=== PATIENT | female | born 1970 | race Caucasian/White ===

== ENCOUNTER 2017-05-02 21:51 | Emergency (ER) | payer OTHER ==
[~2017-05-02] VITALS: Ht 175.3 cm; Wt 113.9 kg
[~2017-05-02 21:51] MED LIST: IBUPROFEN800 MG PO; NEXIUM20 MG PO; PERCOCET 5/3251 EACH PO; SYNTHROID0.175 MG PO; TORADOL10 M1 PO
--- NOTE | 2017-05-02 22:59 | Emergency Room Report ---
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 N Clinical Suspician of Infection? N Mental Status: 1 - Regular (Normal Baseline) Sepsis Risk:Low Sepsis Risk Have you (or family members/close friends) recently traveled outside the [place]? N If Yes, where/when: Have you had exposure to infectious disease within the past month? N TB? Other? Specify: Source patient, RN notes reviewed, family, RN/MD Exam Limitations no limitations Comment This is a 46-year-old lady arriving to the emergency room with abdominal pain, nausea and vomiting, onset 2 weeks ago, gradually getting worse last 2-3 days. Patient underwent bariatric surgery by sleep procedure, in [place], by Dr. Je Fermin, 2 weeks ago. Procedure went uneventfully, however , few days after the operation patient started complaining with epigastric pain. She saw Dr. Fermin in the office on Wednesday and she is scheduled for a return follow-up visit this coming Wednesday. As patient's symptoms precipitated she presented to the closest emergency room. She has been having several episodes of nausea and vomiting on a daily basis, again, worse over the past few days. Patient has a chest pain or shortness of breath otherwise. ALLERGIES Coded Allergies: No Known Allergies (07/16/16) Home Medications Active Scripts KETOROLAC TROMETHAMINE (Ketorolac Tromethamine) 10 MG PO Q6HP PRN MILD PAIN, FEVER OR HEADACHE #20 TAB Ref 1 Prov: 01/29/15 Oxycodone 5MG/[id number] (Oxycodone-Acetaminophen 5-325) 1-2 TAB PO Q4HP PRN MODERATE TO SEVERE PAIN #30 TAB Prov: 01/29/15 Reported Medications Levothyroxine Sodium (Synthroid 0.175MG) 0.175 MG PO DAILY #1 Esomeprazole Magnesium (Nexium) 20 MG PO DAILY History Medical History General CAD? No Angina: No [place]: No Hypertension? No Hyperlipidemia? No CHF? No DVT? No PE? No COPD? No Asthma? No Anemia? No GERD? No Gastric ulcers? No GI Bleed? No Hernia? No Thyroid Problems? Yes Hypothyroidism? No CVA? No Seizures? No Diabetes? No Renal Insuffiency? No End Stage Renal Disease? No UTI? No Stones? No BPH? No GB Disease: No Nephritic Syndrome? No Asplenia? No Hepatitis? No Sickle Cell Disease? No Arthritis? Yes Migraines? No Cataracts? No Glaucoma? No MRSA? No HIV? No TB? No Anxiety? No Depression? No Cancer? Yes Site: BASAL CELL More? 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 Family History Family Hx Diabetes Yes CAD Yes Hypertension Yes Hyperlipidemia Yes Cancer Yes TB No Social History Smoking Hx Smoker: Never Smoker Tobacco: No Alcohol Alcohol: No Review of Systems All Other Systems Reviewed and Negative Gastrointestinal see HPI, abdominal pain, nausea, vomiting Physical Exam Vital Signs Vital Signs Date Time Temp Pulse Resp B/P Pulse O2 O2 Flow FiO2 Ox Delivery Rate 05/03 0331 99 20 148/93 95 05/03 0231 81 20 148/94 95 05/03 0202 20 05/03 0128 80 20 157/95 100 05/03 0015 84 20 151/90 98 05/02 2358 18 05/02 2320 86 18 130/73 98 05/02 2201 98.2 87 18 146/96 100 General Appearance normal appearance, WD/WN, moderate distress Respiratory Status Yes: trachea midline, chest symmetrical, non tender chest. No: respiratory distress. Lung Sounds bilateral: normal breath sounds, lungs clear. 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 No Comment 01:50am - called [facility] in [place], [place] to inquire about transferring the patient to Dr Je Fermin, her bariatric patient. We were told that there is no other physician covering for his group elana. 02:30am - afetr numerous phone calls, we were given Dr. Fermin's office number: , which eventually led to his physician exchange number: . Case d/w physician exchange, Doreen, who paged Dr Fermin. 02:40am - Call returned by Dr Je Fermin, advised of the patient's presentation findings, agreeable with management so far, including Lovenox subcutaneous. Dr. Fermin also recommended the patient be transferred to [facility], care of on-call general surgery, specifically requesting an intervention to be available if medically warranted, in case her condition deteriorates. Dr. Je Fermin does not believe that the portal vein thrombosis is a complication OF the sleeve procedure. He is agreeable with management so far, including anticoagulation with Lovenox. 02:50am - case d/w dr. Robles at (general surgery), advised of the patient's condition and findings, agreeable with transfer to ER. 02:55am- patient very resistant to the idea of being transferred to [facility], due to recent personal family member loss. Patient advised of risks and also complications of her current condition, including sudden , loss of current lifestyle, loss of limb or organ function, etc. Results/Orders Laboratory Tests 05/02/17 2320: Sodium 139, Potassium 3.1 L, Chloride 104, Carbon Dioxide 27, BUN 9, Creatinine 0.8, Estimated Creat Clear 158, Estimated GFR (MDRD) 77, Glucose 101, Calcium 8.4 L, Total Bilirubin 0.4, AST 55 H, ALT 55, Alkaline Phosphatase 174 H, Total Protein 7.6, Albumin 3.2 L, Globulin 4.4 H, Albumin/Globulin Ratio 0.7 L, Amylase 26, Lipase 169, WBC 8.7, RBC 4.85, Hgb 14.0, Hct 41.7, MCV 85.8, RDW 13.2, Plt Count 289, MPV 9.2, Gran % 73.3, Gran # 6.4, Lymphocytes % 18.6, Monocytes % 6.2, Eosinophils % 1.4, Basophils % 0.5, Lymphocytes # 1.6, Monocytes # 0.5, Eosinophils # 0.1, Basophils # 0.0, PUBS MCHC 33.6, MCH 28.8 05/02/17 6929: Opiates Screen Cancelled, Urine Methadone Screen Cancelled, Barbiturates Cancelled, Phencyclidine Screen Cancelled, Amphetamines Screen Cancelled, Benzodiazepines Screen Cancelled, Cocaine Screen Cancelled, Marijuana (THC) Screen Cancelled, Urine Color Cancelled, Urine Appearance Cancelled, Urine pH Cancelled, Ur Specific [place] Cancelled Current Medication Orders Sig/Rajinder Start time Last Medication Dose Route Stop Time Status Admin Morphine Sulfate 10 MG ONCE ONE 05/03 0400 AC IV 05/03 040 Morphine Sulfate 0 .STK-MED ONE 05/03 0350 DC .ROUTE Enoxaparin Sodium 110 MG ONCE ONE 05/03 024 DC SC 05/03 0246 Sodium Chloride 1,000 ML .Q1H1M 05/03 024 DC IV 05/03 0345 Sodium Chloride 10 ML PRN PRN 05/03 0245 AC IV 05/04 0244 Morphine Sulfate 8 MG ONCE ONE 05/03 0200 DC 05/03 IV 05/03 0201 0202 Ondansetron HCl 4 MG ONCE ONE 05/03 0200 DC 05/03 IV 05/03 020 0159 Ondansetron HCl 0 .STK-MED ONE 05/03 0155 DC .ROUTE Potassium Chloride 0 .STK-MED ONE 05/03 0155 DC PO Morphine Sulfate 0 .STK-MED ONE 05/03 0154 DC .ROUTE Iopamidol 75 ML ONCE ONE 05/03 0145 UNV 05/03 IV 05/03 0146 0132 Sodium Chloride 10 ML PRN PRN 05/03 0145 UNV 05/03 IV 05/03 0301 0132 Potassium Chloride 40 MEQ ONCE ONE 05/03 0030 DC 05/03 PO 05/03 0031 0159 Ondansetron HCl 0 .STK-MED ONE 05/02 2332 DC .ROUTE Sodium Chloride 1,000 ML .STK-MED ONE 05/02 2332 DC IV Morphine Sulfate 0 .STK-MED ONE 09/24 2331 DC .ROUTE Morphine Sulfate 6 MG ONCE ONE 05/02 2315 DC 05/02 IV 05/02 231 2358 Ondansetron HCl 4 MG ONCE ONE 05/02 2315 DC 05/02 IV 05/02 2316 2358 Sodium Chloride 1,000 ML .Q1H1M 05/02 2300 DC 05/02 IV 05/03 0000 2358 Sodium Chloride 10 ML PRN PRN 05/02 2300 AC IV 05/03 225 Sodium Chloride 10 ML PRN PRN 05/02 2300 AC IV 05/03 2259 Orders Procedure Date/time Status DIET-NOTHING BY MOUTH 05/[address] ABD & PELVIS W/ CONTRAST 05/[address] ABD/PELVIS REQ 05/03 2305 Active IV SALINE LOCK 05/02 2259 Active LIPASE 05/02 2259 Complete CBC WITH AUTO DIFF 05/02 2259 Complete CHEM 12 PROFILE 05/02 2259 Complete AMYLASE 05/02 2259 Complete XRAY/CT/US XRAY/CT/US CT abdomen, pelvis CT interpretation by discussed w/radiologist CT Results abnormal Comment Refer to virtual radiology report, consistent with portal vein thrombosis Departure Departure Time of Disposition 0149 Disposition DC/XFER from ER to [facility] Clinical Impression Primary Impression: Portal vein thrombosis Condition STABLE ED Critical Care Critical Care Yes Time spent 30-74 min Vital system(s) involved: Circulatory Failure I was present at bedside for Coordinating pt's care, During my initial exam, Reviewing lab results, Reviewing old records, Discussing pt condition, For re- examinations, Examining radiographs If Critical Care minutes are documented, the time involved in the performance of seperately reportable procedures was not counted toward critical care time documented. I directly delivered medical care to this critically ill and/or injured patient. Timely evaluation and treatment was necessary to address the significant organ system(s) dysfunction present in this patient. at [id number]
--- NOTE | 2017-05-02 22:59 | Emergency Room Report ---
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 N Clinical Suspician of Infection? N Mental Status: 1 - Regular (Normal Baseline) Sepsis Risk:Low Sepsis Risk Have you (or family members/close friends) recently traveled outside the [place]? N If Yes, where/when: Have you had exposure to infectious disease within the past month? N TB? Other? Specify: Source patient, RN notes reviewed, family, RN/MD Exam Limitations no limitations Comment This is a 46-year-old lady arriving to the emergency room with abdominal pain, nausea and vomiting, onset 2 weeks ago, gradually getting worse last 2-3 days. Patient underwent bariatric surgery by sleep procedure, in [place], by Dr. Je Fermin, 2 weeks ago. Procedure went uneventfully, however , few days after the operation patient started complaining with epigastric pain. She saw Dr. Fermin in the office on Wednesday and she is scheduled for a return follow-up visit this coming Wednesday. As patient's symptoms precipitated she presented to the closest emergency room. She has been having several episodes of nausea and vomiting on a daily basis, again, worse over the past few days. Patient has a chest pain or shortness of breath otherwise. ALLERGIES Coded Allergies: No Known Allergies (07/16/16) Home Medications Active Scripts KETOROLAC TROMETHAMINE (Ketorolac Tromethamine) 10 MG PO Q6HP PRN MILD PAIN, FEVER OR HEADACHE #20 TAB Ref 1 Prov: 01/29/15 Oxycodone 5MG/[id number] (Oxycodone-Acetaminophen 5-325) 1-2 TAB PO Q4HP PRN MODERATE TO SEVERE PAIN #30 TAB Prov: 01/29/15 Reported Medications Levothyroxine Sodium (Synthroid 0.175MG) 0.175 MG PO DAILY #1 Esomeprazole Magnesium (Nexium) 20 MG PO DAILY History Medical History General CAD? No Angina: No [place]: No Hypertension? No Hyperlipidemia? No CHF? No DVT? No PE? No COPD? No Asthma? No Anemia? No GERD? No Gastric ulcers? No GI Bleed? No Hernia? No Thyroid Problems? Yes Hypothyroidism? No CVA? No Seizures? No Diabetes? No Renal Insuffiency? No End Stage Renal Disease? No UTI? No Stones? No BPH? No GB Disease: No Nephritic Syndrome? No Asplenia? No Hepatitis? No Sickle Cell Disease? No Arthritis? Yes Migraines? No Cataracts? No Glaucoma? No MRSA? No HIV? No TB? No Anxiety? No Depression? No Cancer? Yes Site: BASAL CELL More? 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 Family History Family Hx Diabetes Yes CAD Yes Hypertension Yes Hyperlipidemia Yes Cancer Yes TB No Social History Smoking Hx Smoker: Never Smoker Tobacco: No Alcohol Alcohol: No Review of Systems All Other Systems Reviewed and Negative Gastrointestinal see HPI, abdominal pain, nausea, vomiting Physical Exam Vital Signs Vital Signs Date Time Temp Pulse Resp B/P Pulse O2 O2 Flow FiO2 Ox Delivery Rate 05/03 0331 99 20 148/93 95 05/03 0231 81 20 148/94 95 05/03 0202 20 05/03 0128 80 20 157/95 100 05/03 0015 84 20 151/90 98 05/02 2358 18 05/02 2320 86 18 130/73 98 05/02 2201 98.2 87 18 146/96 100 General Appearance normal appearance, WD/WN, moderate distress Respiratory Status Yes: trachea midline, chest symmetrical, non tender chest. No: respiratory distress. Lung Sounds bilateral: normal breath sounds, lungs clear. 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 No Comment 01:50am - called [facility] in [place], [place] to inquire about transferring the patient to Dr Je Fermin, her bariatric patient. We were told that there is no other physician covering for his group elana. 02:30am - afetr numerous phone calls, we were given Dr. Fermin's office number: ( [phone], which eventually led to his physician exchange number: [phone]. Case d/w physician exchange, Doreen, who paged Dr Fermin. 02:40am - Call returned by Dr Je Fermin, advised of the patient's presentation findings, agreeable with management so far, including Lovenox subcutaneous. Dr. Fermin also recommended the patient be transferred to [facility], care of on-call general surgery, specifically requesting an intervention to be available if medically warranted, in case her condition deteriorates. Dr. Je Fermin does not believe that the portal vein thrombosis is a complication OF the sleeve procedure. He is agreeable with management so far, including anticoagulation with Lovenox. 02:50am - case d/w dr. Robles at (general surgery), advised of the patient's condition and findings, agreeable with transfer to ER. 02:55am- patient very resistant to the idea of being transferred to [facility], due to recent personal family member loss. Patient advised of risks and also complications of her current condition, including sudden , loss of current lifestyle, loss of limb or organ function, etc. Results/Orders Laboratory Tests 05/02/17 2320: Sodium 139, Potassium 3.1 L, Chloride 104, Carbon Dioxide 27, BUN 9, Creatinine 0.8, Estimated Creat Clear 158, Estimated GFR (MDRD) 77, Glucose 101, Calcium 8.4 L, Total Bilirubin 0.4, AST 55 H, ALT 55, Alkaline Phosphatase 174 H, Total Protein 7.6, Albumin 3.2 L, Globulin 4.4 H, Albumin/Globulin Ratio 0.7 L, Amylase 26, Lipase 169, WBC 8.7, RBC 4.85, Hgb 14.0, Hct 41.7, MCV 85.8, RDW 13.2, Plt Count 289, MPV 9.2, Gran % 73.3, Gran # 6.4, Lymphocytes % 18.6, Monocytes % 6.2, Eosinophils % 1.4, Basophils % 0.5, Lymphocytes # 1.6, Monocytes # 0.5, Eosinophils # 0.1, Basophils # 0.0, PUBS MCHC 33.6, MCH 28.8 05/02/17 0509: Opiates Screen Cancelled, Urine Methadone Screen Cancelled, Barbiturates Cancelled, Phencyclidine Screen Cancelled, Amphetamines Screen Cancelled, Benzodiazepines Screen Cancelled, Cocaine Screen Cancelled, Marijuana (THC) Screen Cancelled, Urine Color Cancelled, Urine Appearance Cancelled, Urine pH Cancelled, Ur Specific [place] Cancelled Current Medication Orders Sig/Rajinder Start time Last Medication Dose Route Stop Time Status Admin Morphine Sulfate 10 MG ONCE ONE 05/03 0400 AC IV 05/03 040 Morphine Sulfate 0 .STK-MED ONE 05/03 0350 DC .ROUTE Enoxaparin Sodium 110 MG ONCE ONE 05/03 024 DC SC 05/03 0246 Sodium Chloride 1,000 ML .Q1H1M 05/03 024 DC IV 05/03 0345 Sodium Chloride 10 ML PRN PRN 05/03 0245 AC IV 05/04 0244 Morphine Sulfate 8 MG ONCE ONE 05/03 0200 DC 05/03 IV 05/03 0201 0202 Ondansetron HCl 4 MG ONCE ONE 05/03 0200 DC 05/03 IV 05/03 020 0159 Ondansetron HCl 0 .STK-MED ONE 05/03 0155 DC .ROUTE Potassium Chloride 0 .STK-MED ONE 05/03 0155 DC PO Morphine Sulfate 0 .STK-MED ONE 05/03 0154 DC .ROUTE Iopamidol 75 ML ONCE ONE 05/03 0145 UNV 05/03 IV 05/03 0146 0132 Sodium Chloride 10 ML PRN PRN 05/03 0145 UNV 05/03 IV 05/03 0301 0132 Potassium Chloride 40 MEQ ONCE ONE 05/03 0030 DC 05/03 PO 05/03 0031 0159 Ondansetron HCl 0 .STK-MED ONE 05/02 2332 DC .ROUTE Sodium Chloride 1,000 ML .STK-MED ONE 05/02 2332 DC IV Morphine Sulfate 0 .STK-MED ONE 09/24 2331 DC .ROUTE Morphine Sulfate 6 MG ONCE ONE 05/02 2315 DC 05/02 IV 05/02 231 2358 Ondansetron HCl 4 MG ONCE ONE 05/02 2315 DC 05/02 IV 05/02 2316 2358 Sodium Chloride 1,000 ML .Q1H1M 05/02 2300 DC 05/02 IV 05/03 0000 2358 Sodium Chloride 10 ML PRN PRN 05/02 2300 AC IV 05/03 225 Sodium Chloride 10 ML PRN PRN 05/02 2300 AC IV 05/03 2259 Orders Procedure Date/time Status DIET-NOTHING BY MOUTH 05/[address] ABD & PELVIS W/ CONTRAST 05/[address] ABD/PELVIS REQ 05/03 2305 Active IV SALINE LOCK 05/02 2259 Active LIPASE 05/02 2259 Complete CBC WITH AUTO DIFF 05/02 2259 Complete CHEM 12 PROFILE 05/02 2259 Complete AMYLASE 05/02 2259 Complete XRAY/CT/US XRAY/CT/US CT abdomen, pelvis CT interpretation by discussed w/radiologist CT Results abnormal Comment Refer to virtual radiology report, consistent with portal vein thrombosis Departure Departure Time of Disposition 0149 Disposition DC/XFER from ER to [facility] Clinical Impression Primary Impression: Portal vein thrombosis Condition STABLE ED Critical Care Critical Care Yes Time spent 30-74 min Vital system(s) involved: Circulatory Failure I was present at bedside for Coordinating pt's care, During my initial exam, Reviewing lab results, Reviewing old records, Discussing pt condition, For re- examinations, Examining radiographs If Critical Care minutes are documented, the time involved in the performance of seperately reportable procedures was not counted toward critical care time documented. I directly delivered medical care to this critically ill and/or injured patient. Timely evaluation and treatment was necessary to address the significant organ system(s) dysfunction present in this patient. at 1767
[2017-05-02 23:35] LABS: LYMPH # 1.6 K/mm3 (0.7-4.5); LYMPH % 18.6 % (10-50.0)
[2017-05-03 04:25] VITALS: BP 140/90
--- NOTE | 2017-05-04 07:48 | RADIOLOGY REPORT PS360 ---
CT ABD PELVIS W/ CONTRAST HISTORY: N/V. POST GASTRIC SLEEVE2 weeks ago now with pain nausea vomiting Patient Age: 46 years: Female Ordering Physician: George Canseco MD TECHNIQUE: Helical CT scanning with following 75 cc Isovue-370 IV contrast. No oral contrast COMPARISON : 2014 ultrasound right upper quadrant FINDINGS Lung bases. Small 5 mm nodule anteriorly at RML. Warrants CT chest follow-up in 6 months Abdomen: Liver: Lack of enhancement of the enlarged portal vein which measures up to nearly 2 cm maximum diameter with hazy appearing margin.., Findings here compatible with thrombosis of the portal vein. ( This was reported by the by [facility] report ). This yields some prominence of the branching portal veins into the liver particularly evident here at the right lobe. This portal vein thrombosis believe extends to the portal confluence. Possibly continuing slightly into the SMV. The liver contains numerous benign hepatic cysts All these measure fluid density & all appeared to have enlarged incrementally since 2014 ultrasound.. The largest cyst is seen extends inferiorly from the inferior most tip tip of right lobe liver and measures up to 7 cm maximum. Several other smaller cysts seen: At posterior right lobe bilobed cyst measures up to 3.3 cm x 2.1 cm. A cyst at the medialright lobe inferiorly measures 2.7 cm diameter cyst at the anterior tip measuring 18 mm diameter.. Gallbladder mildly distended but no wall thickening or inflammation or calcified stone. No ductal dilatation Pancreas appears satisfactory. Adrenals unremarkable. Spleen:. Normal/ Upper normal size. Kidneys enhance normally with no urinary tract obstruction or calculi. Ureters unremarkable. Pelvis.: Hysterectomy. No adnexal masses GI tract.: Postsurgical changes at stomach. Long line Stable material seen extending from the GE junction along the the greater curvature stomach-compatible with gastric sleeve procedure. IMPRESSION. No additional findings in this region. I would note the residual from trocar entry sites for the procedure seen at the right and mid abdomen and possibly left abdomen Small bowel appears normal caliber and satisfactory. Large bowel appears satisfactory with only moderate stool right colon and rectal sigmoid. Terminal ileum and region of the appendix appears normal. Appendix not discretely visualized however but no appendicitis evident. IMPRESSION... 1. Findings highly suspect for portal venous thrombosis. Enlarged portal vein with lack of contrast, and hazy margin. Ultrasound right upper quadrant could additionally confirm 2. Distended gallbladder but no calcified stones. 3. Postsurgical changes from recent gastric sleeve procedure 4. There is a, 5 mm nonspecific nodule towards anterior RML warrants follow-up 6 months 5. Multiple Hepatic cysts have enlarged slightly since 2015 . Largest cyst off the inferior aspect lower pole right lobe liver measuring up to 7 diameter 6 Kidneys unremarkable. 7 Appendix not discretely visualized but no evidence of appendicitis Patient
== END 2017-05-03 04:27 | disposition short-term general hospital (02) ==
LOC: ER 21:51
PROVIDERS: Emergency Medicine
DX: I81 Portal vein thrombosis (principal)
CPT/HCPCS: J2405; Q9967

== ENCOUNTER → 2017-06-16 | Outpatient (CLI) | payer OTHER ==
--- NOTE | 2017-06-16 15:00 | RADIOLOGY REPORT PS360 ---
US RUQ-(ABD LTD)1ORGAN/QUAD/FU HISTORY: RUQ ABD PAIN...S/P GASTRIC SURGERY history of recent portal vein thrombosis. ORDERING PHYSICIAN: Josh Omalley MD PATIENT AGE: 47 years COMPARISON: None FINDINGS: PANCREAS:Unremarkable. No obvious mass or abnormal fluid collection. No ductal dilatation LIVER:Multiple hepatic cysts are present. There is turbulent flow within the region of the portal vein likely related to collateral vessels and/or recanalization of the portal vein. A distinct portal vein was not demonstrated that could be measured. The largest hepatic cyst is in the left hepatic lobe at 6 cm. RIGHT KIDNEY:Unremarkable. Normal size and echogenicity. No hydronephrosis GALLBLADDER:There are multiple gallstones. No gallbladder wall thickening, pericholecystic fluid. The common bile duct was not able to be demonstrated. No obvious ductal dilatation. IMPRESSION: 1. Cholelithiasis. 2. Multiple hepatic cyst. 3. Curvilinear blood flow in the region of the portal vein consistent with collateral vessels in the portal area versus recanalized portal vein
== END ==
LOC: RAD 07:46
DX: R10.11 Right upper quadrant pain (principal); Z98.84 Bariatric surgery status

== ENCOUNTER 2017-07-07 08:47 | Day surgery (SDC) | payer OTHER ==
[~2017-07-07] VITALS: Ht 175.3 cm; Wt 102.1 kg
--- NOTE | 2017-07-07 12:53 | Operative Note ---
Surgeon/Diagnoses Surgeon/Car Greaser(s) Date of procedure: 07/07/17 Surgeon: [place] Ledezma Car Greaser(s): Mandy Freeman Diagnoses Pre-op diagnosis: Symptomatic Gallstones Post-op diagnosis Same with large hepatic cyst
--- NOTE | 2017-07-07 12:53 | Anesthesia Record ---
Anesthesia Record Part I Total IV fluids: 2000 EBL (ml): 25 Urine Output: 0 B/P: 156/91 % SaO2: 95 Pulse: 105 Resps: 16 Temp: 97.9 Patient is: Drowsy, Stable Stable to PACU at: 1245 at 1253
--- NOTE | 2017-07-07 12:53 | Operative Note ---
Surgeon/Diagnoses Surgeon/Chemist Food(s) Date of procedure: 07/07/17 Surgeon: North Ledezma Chemist Food(s): Mandy Freeman Diagnoses Pre-op diagnosis: Symptomatic Gallstones Post-op diagnosis Same with large hepatic cyst
--- NOTE | 2017-07-07 12:53 | Anesthesia Record ---
Anesthesia Record Part II Discharge time: 1315 Destination: Same day surgery PACU nurse assessment review? Yes Patient is: Stable Anesthesia complications? No at 1259
--- NOTE | 2017-07-07 13:10 | Operative Note ---
Surgeon/Diagnoses Surgeon/Blow Mold Machine Operator(s) Date of procedure: 07/07/17 Surgeon: [place] Ledezma Blow Mold Machine Operator(s): Mandy Freeman Diagnoses Pre-op diagnosis: Symptomatic gallstones Post-op diagnosis Same Procedure Procedure Procedure: 1. Laparoscopic cholecystectomy 2. Laparoscopic hepatic cystectomy Indications: AKI BENDER is a 47 year-old Female with a history of abdominal pain. She has a rather interesting history. A couple of months ago she underwent laparoscopic gastric sleeve. She states postoperatively she was diagnosed with portal venous vein thrombosis for which she has been on Eliquis. She has had progressive nausea and vomiting. She states that this is different than the nausea she had for several weeks after the gastric sleeve. It has been ongoing. She had constant dull pain in the RIGHT upper quadrant which is worse postprandially. She underwent gallbladder ultrasound which revealed gallstones and incidental hepatic cyst with turbulent flow in the portal vein. She was sent for surgical consultation. Patient was counseled on the increased risk of her surgery due to the history of portal venous thrombosis. She strongly desired proceeding with surgery. Plan was made for laparoscopic cholecystectomy. Her high frequency mill operator managed a Lovenox bridge as she was all her anticoagulation. Findings: Distended thickened gallbladder. Mild fatty liver. Very large superficial hepatic cyst adjacent to the gallbladder. Smaller less superficial moderate cyst inferiorly. Procedure Description: Consent was obtained and patient was taken to the operating room. She was given preoperative intravenous antibiotics. In the operating room she was placed in a supine position. Gen. anesthesia was induced via endotracheal tube. Abdomen was prepped and draped in standard surgical fashion. Subumbilical skin incision was made and while performing abdominal wall lifted the Veress needle was inserted. There were good insufflation pressures and CO2 pneumoperitoneum was achieved 15 mmHg. 10/11 mm optical trocar was inserted at the umbilicus. Intracranial contents were visualized. She was immediately noted to have a large cyst to the RIGHT of the gallbladder. She is positioned in reverse Trendelenburg with LEFT side down. A couple 5 mm trochars were inserted in the RIGHT upper abdomen. 10 mm trocar was inserted in the epigastrium. There is grasped retracted anteriorly and superiorly over the dome the liver. Blunt dissection was carried out at the neck of the gallbladder bluntly incising the visceral peritoneum. Careful dissection was carried out. She had prominent venous structures. Cystic duct was clearly identified and isolated. It was multiply clipped and then divided. Due to the prominence of the cystic fashion her structures these were isolated and clipped and then divided. Gallbladder was dissected free from the liver in a retrograde fashion using Eddie ultrasonic harmonic willie. Gallbladder was placed within an Endo Catch retrieval device and removed from the peritoneal cavity via the umbilical trocar site. The rather large hepatic cyst to the RIGHT of the gallbladder appeared rather superficial with a very thin wall. Due to the strong possibility that this was contributing to her symptoms and due to the possibility that it could rupture given its thin wall plan was made for drainage and cystectomy. Cyst was drained and aspirated with laparoscopic percutaneous aspiration needle. Clip was placed at the aspiration site. Anterior cyst wall was then dissected free down to the liver parenchyma using Eddie ultrasonic harmonic willie. The cyst wall was removed from the perineal cavity after being placed within an Endo Catch retrieval device. The average of the cyst was cauterized using laparoscopic electrocautery. There was a moderate cyst inferior to this but this appeared deeper. This was not addressed surgically due to its location, depth, and smaller size. Perihepatic space, gallbladder fossa, and posterior cyst wall were irrigated and aspirated until clear. There was good hemostasis. Trochars were removed as CO2 pneumoperitoneum was evacuated. Fascia at the umbilicus was closed with 0 Vicryl suture. Local anesthetic was infiltrated into all incisions. Skin incisions were closed with 4-0 Monocryl in a subcuticular fashion. Steri-Strips and clean dry sterile dressings were applied. EBL (ml): 100 Anesthesia: GETA Specimens: Gallbladder and contents, hepatic cyst wall Disposition Disposition: To PACU at 1310
[2017-07-07 14:37] VITALS: BP 132/73
== END 2017-07-07 13:45 | disposition home or self-care (01) ==
LOC: SDC 08:47
PROVIDERS: Surgery
PROC: 0FB04ZZ Excision of Liver, Percutaneous Endoscopic Approach (ICD-10-PCS; 2017-07-07)
PROC: 0FT44ZZ Resection of Gallbladder, Percutaneous Endoscopic Approach (ICD-10-PCS; principal; 2017-07-07 11:00)
DX: K80.80 Other cholelithiasis without obstruction (principal); D13.4 Benign neoplasm of liver
CPT/HCPCS: J0131; J2405; J2710